=== PATIENT | female | born 1970 | race African-American/Black ===

== ENCOUNTER 2017-08-10 15:43 | Outpatient (CLI) | payer MEDICARE, MEDICAID | END 2017-08-10 15:44 | disposition home or self-care (01) | LOC: BICMAMMO 15:43 | PROVIDERS: ATTEND Family Medicine | DX: Z12.31 Encounter for screening mammogram for malignant neoplasm of breast (principal) | CPT/HCPCS: 77063; 77067 ==

== ENCOUNTER 2018-08-16 16:56 | Emergency (ER) | payer MEDICARE, MEDICAID ==
[2018-08-16] MEDS ORDERED: Lisinopril 10 MG TAB ONE (18:02)
[2018-08-16] MEDS ORDERED: Carvedilol 6.25 MG TAB PO SCH (18:30)
== END 2018-08-16 21:05 | disposition home or self-care (01) ==
LOC: ERS 16:56
DX: R04.0 Epistaxis (principal); I10 Essential (primary) hypertension; E11.9 Type 2 diabetes mellitus without complications; I11.0 Hypertensive heart disease with heart failure; I50.9 Heart failure, unspecified; E78.5 Hyperlipidemia, unspecified; F41.9 Anxiety disorder, unspecified; Z79.891 Long term (current) use of opiate analgesic; Z79.84 Long term (current) use of oral hypoglycemic drugs; Z79.899 Other long term (current) drug therapy
CPT/HCPCS: 93005

== ENCOUNTER 2018-11-02 09:03 | Outpatient (CLI) | payer MEDICARE, MEDICAID ==
--- NOTE | 2018-11-02 09:59 | MMO ---
Bilateral MAMMO Bilat Screen [facility]. CLINICAL HISTORY: Patient is 48 years old and is seen for screening. The patient has no family history of breast cancer. The patient has no personal history of cancer. VIEWS: The views performed were: bilateral craniocaudal; bilateral craniocaudal with tomosynthesis; bilateral mediolateral oblique; and bilateral mediolateral oblique with tomosynthesis. FILMS COMPARED: The present examination has been compared to prior imaging studies performed at [facility] on 05/10/2014, 05/25/2015, 07/21/2016 and 08/10/2017. MAMMOGRAM FINDINGS: The breasts are almost entirely fat. Finding 1: There are stable benign appearing calcifications seen in both breasts. Finding 2: There is a stable focal asymmetry seen in the left breast. There are no suspicious masses, suspicious calcifications, or new areas of architectural distortion. IMPRESSION: THERE IS NO MAMMOGRAPHIC EVIDENCE OF MALIGNANCY. A ROUTINE FOLLOW-UP MAMMOGRAM IN 1 YEAR IS RECOMMENDED. THE RESULTS OF THIS EXAM WERE SENT TO THE PATIENT. ACR BI-RADS Category 2 - Benign finding MAMMOGRAPHY NOTE: 1. A negative mammogram report should not delay a biopsy if a dominant of clinically suspicious mass is present. 2. Approximately 10% to 15% of breast cancers are not detected by mammography. 3. Adenosis and dense breasts may obscure an underlying neoplasm.
== END 2018-11-02 09:04 | disposition home or self-care (01) ==
LOC: BICMAMMO 09:03
PROVIDERS: ATTEND Family Medicine
DX: Z12.31 Encounter for screening mammogram for malignant neoplasm of breast (principal)
CPT/HCPCS: 77063; 77067

== ENCOUNTER 2019-11-06 10:23 | Outpatient (CLI) | payer MEDICARE, MEDICAID ==
--- NOTE | 2019-11-06 12:08 | MMO ---
Bilateral MAMMO Bilat Screen [facility]. CLINICAL HISTORY: Patient is 49 years old and is seen for screening. The patient has no family history of breast cancer. The patient has no personal history of cancer. VIEWS: The views performed were: bilateral craniocaudal; bilateral craniocaudal with tomosynthesis; bilateral mediolateral oblique; and bilateral mediolateral oblique with tomosynthesis. FILMS COMPARED: The present examination has been compared to prior imaging studies performed at [facility] on 05/25/2015, 07/21/2016, 08/10/2017 and 11/02/2018. This study has been interpreted with the assistance of computer-aided detection. MAMMOGRAM FINDINGS: The breasts are almost entirely fat. There are stable benign appearing calcifications seen in both breasts. There are no suspicious masses, suspicious calcifications, or new areas of architectural distortion. IMPRESSION: THERE IS NO MAMMOGRAPHIC EVIDENCE OF MALIGNANCY. A ROUTINE FOLLOW-UP MAMMOGRAM IN 1 YEAR IS RECOMMENDED. THE RESULTS OF THIS EXAM WERE SENT TO THE PATIENT. ACR BI-RADS Category 2 - Benign finding MAMMOGRAPHY NOTE: 1. A negative mammogram report should not delay a biopsy if a dominant of clinically suspicious mass is present. 2. Approximately 10% to 15% of breast cancers are not detected by mammography. 3. Adenosis and dense breasts may obscure an underlying neoplasm. Reported by: MARIO AN MD Electonically Signed: [id number]
== END 2019-11-06 10:24 | disposition home or self-care (01) ==
LOC: BICMAMMO 10:23
PROVIDERS: ATTEND Family Medicine
DX: Z12.31 Encounter for screening mammogram for malignant neoplasm of breast (principal)
CPT/HCPCS: 77063; 77067

== ENCOUNTER 2020-07-15 13:39 | Outpatient (CLI) | payer MEDICARE, MEDICAID ==
[~2020-07-15 13:39] MED LIST: Iopamidol-370 76% 500 ML 1 ML ONE
== END 2020-07-15 13:40 | disposition home or self-care (01) ==
LOC: BICCT 13:39
PROVIDERS: ATTEND Family Medicine
DX: R09.89 Other specified symptoms and signs involving the circulatory and respiratory systems (principal); K80.20 Calculus of gallbladder without cholecystitis without obstruction; I70.202 Unspecified atherosclerosis of native arteries of extremities, left leg; D73.89 Other diseases of spleen
CPT/HCPCS: 75635; 82565; Q9967

== ENCOUNTER 2020-11-08 10:58 | Outpatient (CLI) | payer MEDICARE, MEDICAID | END 2020-11-08 10:59 | disposition home or self-care (01) | LOC: BICMAMMO 10:58 | PROVIDERS: ATTEND Orthopaedic Surgery Orthopaedic Surgery of the Spine | DX: Z12.31 Encounter for screening mammogram for malignant neoplasm of breast (principal) | CPT/HCPCS: 77063; 77067 ==

== ENCOUNTER 2021-05-22 08:52 | Outpatient (CLI) | payer MEDICARE, MEDICAID | END 2021-05-22 08:53 | disposition home or self-care (01) | LOC: CT 08:52 | PROVIDERS: ATTEND Family Medicine | DX: D73.89 Other diseases of spleen (principal); K44.9 Diaphragmatic hernia without obstruction or gangrene; K80.20 Calculus of gallbladder without cholecystitis without obstruction | CPT/HCPCS: 74170 ==

== ENCOUNTER 2023-11-24 13:58 | Outpatient (CLI) | payer OTHER | END 2023-11-24 13:59 | disposition home or self-care (01) | LOC: BICMAMMO 13:58 | PROVIDERS: ATTEND Family Medicine | DX: Z12.31 Encounter for screening mammogram for malignant neoplasm of breast (principal) | CPT/HCPCS: 77063; 77067 ==

== ENCOUNTER 2024-04-05 14:08 | Outpatient (CLI) | payer OTHER | END 2024-04-05 14:09 | disposition home or self-care (01) | PROVIDERS: ATTEND Family Medicine | DX: I50.32 Chronic diastolic (congestive) heart failure (principal); I42.0 Dilated cardiomyopathy; M17.11 Unilateral primary osteoarthritis, right knee; M21.061 Valgus deformity, not elsewhere classified, right knee; R26.89 Other abnormalities of gait and mobility ==

== ENCOUNTER 2024-11-24 09:54 | Outpatient (CLI) | payer OTHER, MEDICAID | END 2024-11-24 09:55 | disposition home or self-care (01) | LOC: BICMAMMO 09:54 | PROVIDERS: ATTEND Family Medicine | DX: Z12.31 Encounter for screening mammogram for malignant neoplasm of breast (principal) | CPT/HCPCS: 77063; 77067 ==

== ENCOUNTER 2025-03-20 10:07 | Outpatient (CLI) | payer OTHER | END 2025-03-20 10:08 | disposition home or self-care (01) | LOC: MRI 10:07 | PROVIDERS: ATTEND Family Medicine | DX: R29.898 Other symptoms and signs involving the musculoskeletal system (principal); R29.6 Repeated falls; M51.369 Other intervertebral disc degeneration, lumbar region without mention of lumbar back pain or lower extremity pain; M47.816 Spondylosis without myelopathy or radiculopathy, lumbar region | CPT/HCPCS: 72148 ==